=== PATIENT | female | born 1950 | race Caucasian/White ===

== ENCOUNTER → 2018-11-03 | Outpatient (CLI) | payer MEDICARE, OTHER ==
--- NOTE | 2018-11-03 13:54 | XR ---
EXAMINATION TYPE: XR foot complete RT DATE OF EXAM: 11/03/2018 CLINICAL HISTORY: Lateral right foot pain for 6 weeks with no known injury. TECHNIQUE: Frontal, lateral, and oblique images of the right foot are obtained. COMPARISON: None FINDINGS: There is no acute fracture/dislocation evident in the right foot. The joint spaces in the right foot appear within normal limits. The overlying soft tissue appears unremarkable. IMPRESSION: There is no acute fracture or dislocation in the right foot. MRI could evaluate for stre ss reaction/radiographically occult stress fracture if there is further concern.
== END ==
LOC: RADXRYALE 11:12
PROVIDERS: ATTEND Physician Assistant Medical
DX: M79.671 Pain in right foot (principal)

== ENCOUNTER → 2023-09-21 | Outpatient (CLI) | payer MEDICARE, OTHER ==
--- NOTE | 2023-09-21 15:25 | XR ---
EXAMINATION TYPE: XR sacrum coccyx DATE OF EXAM: 09/21/2023 COMPARISON: NONE HISTORY: 73-year-old female [id number] FALL INJURY TECHNIQUE: 3 views FINDINGS: SI joints appear symmetric and intact. The hips appear symmetric. Mild degenerative change pubic symphysis. No displaced or angulated sacrococcygeal fracture is identified. IMPRESSION: No displaced or angulated tailbone fracture identified.
== END | disposition home or self-care (01) ==
LOC: RADXRYALE 13:46
PROVIDERS: ATTEND Physician Assistant Medical
DX: S34.139A Unspecified injury to sacral spinal cord, initial encounter (principal); W19.XXXA Unspecified fall, initial encounter
CPT/HCPCS: 72220